=== PATIENT | female | born 1960 | race Caucasian/White ===

== ENCOUNTER 2017-01-14 17:25 | Emergency (ER) | payer OTHER ==
[~2017-01-14] VITALS: Ht 152.4 cm; Wt 53.0 kg
[~2017-01-14 17:25] MED LIST: ADVAIR 250/501 DISK IH; ADVAIR 500/501 DISK IH; ALLEGRA180 MG PO; AMLODIPINE BES2.5 MG PO; BENADRYL ALLERG25 MG PO; BUMEX0.5 MG PO; CALCIUM CARB 51 EACH PO; CARAFATE100 MG/ML PO; CIPROFLOXACIN500 M1 PO; CLONIDINE HCL0.1 MG PO; COLACE100 MG PO; COMBIVENT RESPIM4 GM IH; CYMBALTA30 MG PO; DEPAKOTE500 MG PO; DOCUSATE SODIU100 MG PO; FLEXERIL10 MG PO; GENERLAC10 GM/15 M PO; HYDROCORTISON28.4 GM TP; HYOMAX0.125 MG PO; LACTULOSE10 GM/151 PO; LEXAPRO10 MG PO; LIDODERM 5% P1 PATCH PO; LIDODERM 5% P1 PATCH TD; LUNESTA3 MG PO; MYLICON,MYLANTA80 MG PO; NEXIUM40 MG PO; NORVASC10 MG PO; NORVASC5 MG PO; OPANA ER20 MG PO; ORPHENADRINE C100 MG PO; OXYCODONE HCL20 M1 PO; OXYCODONE HCL5 MG PO; PERCOCET 10-321 EACH PO; POLYETHYLENE GL17 GM PO; PROAIR HFA8.5 GM IH; PROCTOSOL-HC28.35 GM PR; PROTONIX20 MG PO; RANITIDINE HCL150 MG PO; REMERON30 M2 PO; SINGULAIR10 MG PO; TESSALON PERLE100 MG PO; TOPAMAX50 MG PO; ULTRAM50 MG PO; VITAMIN; VITAMIN D400 UNI2 PO; VYTORIN 10/21 TABLET PO; XANAX0.5 MG PO; ZOFRAN4 MG PO
[2017-01-14 18:32] LABS: HEMATOCRIT 43.8 % (36.0-46.0); MCH 29.2 PG (29.0-34.0); MCV 85.9 FL (83-99); MEAN PLAT.VOLUME 10.7 uM^3 (9.5-12.4); PLATELET COUNT 180 K/uL (156-360); RBC DIS.WIDTH-CV 12.2 % (11.8-14.6); RBC DIS.WIDTH-SD 38.6 % (39-53); WHITE BLOOD COUNT 8.8 K/uL (4.1-10.2)
[2017-01-14 18:35] LABS: CHLORIDE 110 mEq/L (99-109)
[2017-01-14 18:36] LABS: POTASSIUM 3.9 mEq/L (3.7-5.4); SODIUM 142 mEq/L (136-147)
[2017-01-14 18:38] LABS: GLUCOSE 89 mg/dL (70-99)
[2017-01-14 18:39] LABS: ANION GAP 12 MEQ/L (2-14)
[2017-01-14 18:40] LABS: TOTAL BILIRUBIN 0.5 mg/dL (0.0-1.0)
[2017-01-14 18:41] LABS: ALKALINE PHOSPHATASE 60 IU/L (3-129); GFR ESTIMATE (CALCULATED) 38 mL/min/
[2017-01-14 18:43] LABS: UREA NITROGEN (BUN) 28 mg/dL (9-23)
[2017-01-14 18:50] LABS: QUANTITATIVE HCG < 4.0 MIU/ML
[2017-01-14 19:36] LABS: LIPASE 69 U/L (1.0-51.0)
[2017-01-14 19:49] LABS: ADD MIUA? YES; BILIRUBIN NEGATIVE; BLOOD NEGATIVE; COLOR YELLOW ((YELLOW)); GLUCOSE (STRIP) NEGATIVE; KETONES 5; LEUKOCYTES TRACE; NITRITE NEGATIVE; PROTEIN (STRIP) 30; SPECIFIC GRAVITY 1.013 (1.000-1.030); UROBILINOGEN 0.2 MG/DL (0.2-1.0)
[2017-01-14 19:52] LABS: BACTERIA RARE /HPF; EPITHELIAL CELLS RARE /HPF; MUCUS TRACE /LPF; RED BLOOD CELLS 0-5 /HPF (0-5); UCUL ADDED? NO; WHITE BLOOD CELLS 0-5 /HPF (0-5)
[2017-01-14] MEDS ORDERED: BENTYL10 MG PO (22:03)
[2017-01-14] MEDS ORDERED: ZOFRAN ODT4 MG PO (22:03)
[2017-01-14] MEDS ORDERED: LIDODERM 5% P1 PATCH TD (22:06)
[2017-01-14 22:46] VITALS: BP 158/104
== END 2017-01-14 22:48 | disposition home or self-care (01) ==
LOC: EME 17:25
DX: R10.9 Unspecified abdominal pain (principal); E86.0 Dehydration; R19.7 Diarrhea, unspecified; J44.9 Chronic obstructive pulmonary disease, unspecified; F31.9 Bipolar disorder, unspecified; I10 Essential (primary) hypertension; Z85.038 Personal history of other malignant neoplasm of large intestine; Z85.43 Personal history of malignant neoplasm of ovary; Z85.05 Personal history of malignant neoplasm of liver; F17.200 Nicotine dependence, unspecified, uncomplicated
CPT/HCPCS: 74177; 80053; 81003; 83690; 84702; 85027; 87493; 99281; 99285; J2270; J2405; J7030

== ENCOUNTER 2017-02-02 13:52 | Inpatient (IN) | payer OTHER ==
[~2017-02-02] VITALS: Ht 154.9 cm; Wt 54.0 kg
[~2017-02-02 13:52] MED LIST changes: +BENTYL10 MG PO; +ZOFRAN ODT4 MG PO
[2017-02-02 15:21] LABS: HEMATOCRIT 40.6 % (36.0-46.0); MCH 29.6 PG (29.0-34.0); MCHC 33.3 G/DL (30.0-36.0); MEAN PLAT.VOLUME 10.3 uM^3 (9.5-12.4); PLATELET COUNT 152 K/uL (156-360); RBC DIS.WIDTH-SD 42.7 % (39-53); RED BLOOD COUNT 4.56 M/uL (3.80-5.20); WHITE BLOOD COUNT 6.9 K/uL (4.1-10.2)
[2017-02-02 15:31] LABS: CHLORIDE 106 mEq/L (99-109)
[2017-02-02 15:32] LABS: POTASSIUM 4.2 mEq/L (3.7-5.4); SODIUM 141 mEq/L (136-147)
[2017-02-02 15:34] LABS: GLUCOSE 100 mg/dL (70-99)
[2017-02-02 15:35] LABS: ANION GAP 10 MEQ/L (2-14)
[2017-02-02 15:36] LABS: TOTAL BILIRUBIN 0.5 mg/dL (0.0-1.0)
[2017-02-02 15:37] LABS: ALKALINE PHOSPHATASE 72 IU/L (3-129); GFR ESTIMATE (CALCULATED) 36 mL/min/
[2017-02-02 15:39] LABS: UREA NITROGEN (BUN) 37 mg/dL (9-23)
[2017-02-02 15:46] LABS: QUANTITATIVE HCG < 4.0 MIU/ML
[2017-02-02 16:00] LABS: LIPASE 433 U/L (1.0-51.0)
[2017-02-02 17:39] LABS: AMYLASE 180 IU/L (1-118)
[2017-02-02 19:08] LABS: ADD MIUA? YES; BILIRUBIN NEGATIVE; BLOOD MODERATE; COLOR YELLOW ((YELLOW)); GLUCOSE (STRIP) NEGATIVE; KETONES NEGATIVE; LEUKOCYTES SMALL; NITRITE NEGATIVE; PROTEIN (STRIP) 30; SPECIFIC GRAVITY 1.013 (1.000-1.030); UROBILINOGEN 0.2 MG/DL (0.2-1.0)
[2017-02-02 19:53] LABS: BACTERIA NONE SEEN /HPF; EPITHELIAL CELLS 1+ /HPF; MUCUS NONE SEEN /LPF; UCUL ADDED? NO; WHITE BLOOD CELLS 0-5 /HPF (0-5)
[2017-02-02 20:39] LABS: SERUM ETHYL ALCOHOL < 10 mg/dL
[2017-02-02 20:48] VITALS: BP 131/87
[2017-02-02 21:45] LABS: TROP-I INTERPRETATION NEGATIVE; TROPONIN-I < 0.01 ng/mL (0.0-0.30)
[2017-02-02] MEDS ORDERED: OMEPRAZOLE40 M1 PO (23:24)
[2017-02-02] MEDS ORDERED: CALCIUM 600 +1 EAC2 PO (23:25)
[2017-02-02] MEDS ORDERED: DESYREL100 MG PO (23:25)
[2017-02-02] MEDS ORDERED: HYDROCORTISONE30 G2 TP (23:25)
[2017-02-02] MEDS ORDERED: ROXICODONE5 MG PO (23:26)
[2017-02-02] MEDS ORDERED: XYZAL5 MG PO (23:26)
[2017-02-02] MEDS ORDERED: COLACE100 MG PO (23:26)
[2017-02-02] MEDS ORDERED: MIRALAX255 GM PO (23:26)
[2017-02-02] MEDS ORDERED: FLONASE16 G1 BOTH NARES (23:27)
[2017-02-02] MEDS ORDERED: ONDANSETRON ODT4 MG PO (23:28)
[2017-02-02 23:45] VITALS: BP 127/79
[2017-02-03 03:31] VITALS: BP 126/84
[2017-02-03 03:35] LABS: EOSINOPHIL (%) 1.1 % (0-5); EOSINOPHIL COUNT 0.1 K/uL (0-0.3); IMMATURE GRANULOCYTE (%) 0.3 % (0.0-0.7); INSTRUMENT ABS NEUTROPHIL CT 3.8 K/uL; LYMPHOCYTE COUNT 2.1 K/uL (1.0-2.8); MCH 29.5 PG (29.0-34.0); MCHC 32.9 G/DL (30.0-36.0); MCV 89.6 FL (83-99); MEAN PLAT.VOLUME 10.7 uM^3 (9.5-12.4); MONOCYTE COUNT 0.5 K/uL (0-0.8); NEUTROPHIL (%) 58.3 % (45-76); NEUTROPHIL COUNT 3.8 K/uL (1.8-6.4); PLATELET COUNT 141 K/uL (156-360); RBC DIS.WIDTH-CV 13.1 % (11.8-14.6); RED BLOOD COUNT 4.24 M/uL (3.80-5.20); WHITE BLOOD COUNT 6.6 K/uL (4.1-10.2)
[2017-02-03 03:44] LABS: CHLORIDE 110 mEq/L (99-109); POTASSIUM 3.8 mEq/L (3.7-5.4); SODIUM 142 mEq/L (136-147)
[2017-02-03 03:46] LABS: GLUCOSE 49 mg/dL (70-99)
[2017-02-03 03:47] LABS: ANION GAP 8 MEQ/L (2-14)
[2017-02-03 03:48] LABS: TOTAL BILIRUBIN 0.4 mg/dL (0.0-1.0)
[2017-02-03 03:49] LABS: ALKALINE PHOSPHATASE 63 IU/L (3-129)
[2017-02-03 03:50] LABS: GFR ESTIMATE (CALCULATED) 45 mL/min/
[2017-02-03 03:51] LABS: DIRECT BILIRUBIN 0.1 mg/dL (0.0-0.3); UREA NITROGEN (BUN) 26 mg/dL (9-23)
[2017-02-03 03:53] LABS: LIPASE 91 U/L (1.0-51.0)
[2017-02-03 03:58] LABS: TROP-I INTERPRETATION NEGATIVE; TROPONIN-I < 0.01 ng/mL (0.0-0.30)
[2017-02-03 07:30] VITALS: BP 145/94
[2017-02-03 11:07] LABS: TROP-I INTERPRETATION NEGATIVE; TROPONIN-I 0.01 ng/mL (0.0-0.30)
[2017-02-03 11:12] VITALS: BP 135/77
[2017-02-03 17:00] VITALS: BP 138/84
[2017-02-03 19:30] VITALS: BP 130/83
[2017-02-04] VITALS (7 sets, daily range): BP systolic 114–135; BP diastolic 71–86
[2017-02-04 06:17] LABS: HEMATOCRIT 38.2 % (36.0-46.0); MCH 29.4 PG (29.0-34.0); MEAN PLAT.VOLUME 10.7 uM^3 (9.5-12.4); PLATELET COUNT 122 K/uL (156-360); RBC DIS.WIDTH-CV 13.1 % (11.8-14.6); RBC DIS.WIDTH-SD 42.6 % (39-53); RED BLOOD COUNT 4.29 M/uL (3.80-5.20); WHITE BLOOD COUNT 5.6 K/uL (4.1-10.2)
[2017-02-04 06:48] LABS: ALKALINE PHOSPHATASE 53 IU/L (3-129); ANION GAP 10 MEQ/L (2-14); CHLORIDE 109 MEQ/L (99-109); GFR ESTIMATE (CALCULATED) 50 mL/min/; LIPASE 24 U/L (1.0-51.0); POTASSIUM 3.9 MEQ/L (3.7-5.4); SAMPLE HEMOLYSIS CHECK 0; SAMPLE ICTERIC CHECK 0; SAMPLE LIPEMIA CHECK 0; SODIUM 142 MEQ/L (136-147); TOTAL BILIRUBIN 0.5 MG/DL (0.0-1.0); UREA NITROGEN (BUN) 13 mg/dL (9-23)
[2017-02-04 06:56] LABS: GLUCOSE 123 mg/dL (70-99)
[2017-02-05 04:09] VITALS: BP 110/71
[2017-02-05 05:50] LABS: HEMATOCRIT 39.4 % (36.0-46.0); MCH 29.4 PG (29.0-34.0); MCHC 32.7 G/DL (30.0-36.0); MCV 89.7 FL (83-99); MEAN PLAT.VOLUME 11.1 uM^3 (9.5-12.4); PLATELET COUNT 112 K/uL (156-360); RBC DIS.WIDTH-CV 13.1 % (11.8-14.6); RBC DIS.WIDTH-SD 43.5 % (39-53); RED BLOOD COUNT 4.39 M/uL (3.80-5.20); WHITE BLOOD COUNT 5.3 K/uL (4.1-10.2)
[2017-02-05 06:30] LABS: ALKALINE PHOSPHATASE 53 IU/L (3-129); ANION GAP 8 MEQ/L (2-14); CHLORIDE 111 MEQ/L (99-109); GFR ESTIMATE (CALCULATED) 45 mL/min/; LIPASE 24 U/L (1.0-51.0); POTASSIUM 4.1 MEQ/L (3.7-5.4); SAMPLE HEMOLYSIS CHECK 0; SAMPLE ICTERIC CHECK 0; SAMPLE LIPEMIA CHECK 0; SODIUM 144 MEQ/L (136-147); TOTAL BILIRUBIN 0.4 MG/DL (0.0-1.0); UREA NITROGEN (BUN) 12 mg/dL (9-23)
[2017-02-05 06:31] LABS: GLUCOSE 83 mg/dL (70-99)
[2017-02-05 07:24] VITALS: BP 110/71
[2017-02-05 09:10] VITALS: BP 110/71
[2017-02-05] MEDS ORDERED: LIDOCAINE700 MG TD (11:07)
== END 2017-02-05 13:49 | disposition home health service (06) | DRG 439 ==
LOC: EME 13:52 → 5SOUTH 19:33 → EDOF 19:33 → 5SOUTH 20:53
PROVIDERS: Hospitalist; Internal Medicine Gastroenterology
PROC: 0DB68ZX Excision of Stomach, Via Natural or Artificial Opening Endoscopic, Diagnostic (ICD-10-PCS; principal; 2017-02-03)
DX: K85.90 Acute pancreatitis without necrosis or infection, unspecified (principal); N17.9 Acute kidney failure, unspecified; E86.0 Dehydration; I12.9 Hypertensive chronic kidney disease with stage 1 through stage 4 chronic kidney disease, or unspecified chronic kidney disease; N18.3 Chronic kidney disease, stage 3 (moderate); K25.9 Gastric ulcer, unspecified as acute or chronic, without hemorrhage or perforation; K29.60 Other gastritis without bleeding; J44.9 Chronic obstructive pulmonary disease, unspecified; E78.5 Hyperlipidemia, unspecified; F31.9 Bipolar disorder, unspecified; F17.210 Nicotine dependence, cigarettes, uncomplicated; G89.4 Chronic pain syndrome; J98.01 Acute bronchospasm; K21.9 Gastro-esophageal reflux disease without esophagitis; K57.30 Diverticulosis of large intestine without perforation or abscess without bleeding; G43.909 Migraine, unspecified, not intractable, without status migrainosus; Z85.038 Personal history of other malignant neoplasm of large intestine; Z90.49 Acquired absence of other specified parts of digestive tract; Z88.0 Allergy status to penicillin; Z88.2 Allergy status to sulfonamides; Q44.6 Cystic disease of liver; Q61.2 Polycystic kidney, adult type; Z91.040 Latex allergy status
CPT/HCPCS: 74176; 80048; 80053; 80076; 81003; 82150; 83630; 83690; 84484; 84702; 85025; 85027; 87177; 87493; 87506; 88305; 88342 TC; 93005; 94640; 94640 76; 99202; 99281; 99284; G0480; J1170; J1200; J1644; J2250; J2270; J2405; J3010; J7030; S0028

== ENCOUNTER 2018-02-19 01:28 | Emergency (ER) | payer OTHER ==
[~2018-02-19] VITALS: Ht 160 cm; Wt 49.3 kg
[~2018-02-19 01:28] MED LIST changes: +CALCIUM 600 +1 EAC2 PO; +DESYREL100 MG PO; +FLONASE16 G1 BOTH NARES; +HYDROCORTISONE30 G2 TP; +LIDOCAINE700 MG TD; +MIRALAX255 GM PO; +OMEPRAZOLE40 M1 PO; +ONDANSETRON ODT4 MG PO; +ROXICODONE5 MG PO; +XYZAL5 MG PO
[2018-02-19 02:22] LABS: HEMATOCRIT 40.3 % (36.0-46.0); HEMOGLOBIN 14.1 G/DL (11.9-15.5); MCH 30.8 PG (29.0-34.0); PLATELET COUNT 143 K/uL (156-360); RBC DIS.WIDTH-CV 12.6 % (11.8-14.6); RBC DIS.WIDTH-SD 40.3 % (39-53); RED BLOOD COUNT 4.58 M/uL (3.80-5.20); WHITE BLOOD COUNT 7.4 K/uL (4.1-10.2)
[2018-02-19 02:38] LABS: ALBUMIN 3.7 g/dL (3.2-4.8); CHLORIDE 101 mEq/L (99-109); POTASSIUM 4.4 mEq/L (3.7-5.4); SODIUM 140 mEq/L (136-147)
[2018-02-19 02:40] LABS: GLUCOSE 95 mg/dL (70-99)
[2018-02-19 02:42] LABS: TOTAL BILIRUBIN 0.4 mg/dL (0.0-1.0)
[2018-02-19 02:44] LABS: ALKALINE PHOSPHATASE 57 IU/L (3-129); CREATININE 2.2 mg/dL (0.6-1.3); GFR ESTIMATE (CALCULATED) 25 mL/min/
[2018-02-19 02:45] LABS: UREA NITROGEN (BUN) 32 mg/dL (9-23)
[2018-02-19 02:46] LABS: AST (GOT) 16 IU/L (2-34)
[2018-02-19 02:47] LABS: ALT (GPT) 9 IU/L (3-49); LIPASE 31 U/L (1.0-51.0)
[2018-02-19 02:56] LABS: TROP-I INTERPRETATION NEGATIVE; TROPONIN-I < 0.01 ng/mL (0.0-0.30)
[2018-02-19 03:47] LABS: APPEARANCE CLEAR ((CLEAR)); BILIRUBIN NEGATIVE; BLOOD NEGATIVE; COLOR STRAW ((YELLOW)); GLUCOSE (STRIP) NEGATIVE; KETONES NEGATIVE; LEUKOCYTES TRACE; NITRITE NEGATIVE; PROTEIN (STRIP) NEGATIVE; SPECIFIC GRAVITY 1.004 (1.000-1.030); UROBILINOGEN 0.2 MG/DL (0.2-1.0)
[2018-02-19 04:02] LABS: BACTERIA NONE SEEN /HPF; EPITHELIAL CELLS NONE SEEN /HPF; MUCUS NONE SEEN /LPF; RED BLOOD CELLS 0-5 /HPF (0-5); UCUL ADDED? NO; WHITE BLOOD CELLS 0-5 /HPF (0-5)
[2018-02-19 04:40] VITALS: BP 116/81
== END 2018-02-19 04:41 | disposition home or self-care (01) ==
LOC: EME 01:28
PROVIDERS: Emergency Medicine
DX: R53.1 Weakness (principal); I12.9 Hypertensive chronic kidney disease with stage 1 through stage 4 chronic kidney disease, or unspecified chronic kidney disease; N18.9 Chronic kidney disease, unspecified; F12.90 Cannabis use, unspecified, uncomplicated; J44.9 Chronic obstructive pulmonary disease, unspecified; F32.9 Major depressive disorder, single episode, unspecified; F41.9 Anxiety disorder, unspecified; Z85.038 Personal history of other malignant neoplasm of large intestine; Z88.2 Allergy status to sulfonamides; Z88.0 Allergy status to penicillin; Z88.6 Allergy status to analgesic agent; Z91.040 Latex allergy status
CPT/HCPCS: 71046; 80053; 81003; 83690; 84484; 85027; 93005; 99281; 99284